=== PATIENT | female | born 1995 | race Caucasian/White ===

== ENCOUNTER 2019-11-09 14:24 | Outpatient (REF) | payer BC, SELFPAY ==
[2019-11-10 14:51] LABS: Chlamydia Result Negative (Negative); GC Result Negative (Negative)
== END 2019-11-09 14:44 ==
LOC: LBN 14:24
PROVIDERS: Visit Provider Nurse Practitioner Women's Health
DX: Z11.3 Encounter for screening for infections with a predominantly sexual mode of transmission (principal)
CPT/HCPCS: 87491; 87591